=== PATIENT | female | born 2000 | race Two or more races ===

== ENCOUNTER 2024-08-28 11:49 | Emergency (ER) | payer MEDICAID, SELFPAY ==
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
[2024-08-28 12:35] VITALS: BMI 25.6
[2024-08-28 13:04] LABS: Basophils # (Auto) 0.1 Thou/mm3 (0.0-0.2); Basophils % (Auto) 0 % (0-2.5); Eosinophils # (Auto) 0.1 Thou/mm3 (0.0-0.5); Eosinophils % (Auto) 0 % (0-10); Hematocrit 35.7 % (36.0-46.0); Immature Granulocytes % (Auto) 0 % (0-0); Immature Granulocytes Auto 0.05 Thou/mm3 (0.00-0.00); Lymphocytes # (Auto) 1.2 Thou/mm3 (1.0-4.8); Lymphocytes % (Auto) 11 % (10-50); Mean Corpuscular HGB Conc 30.8 g/dl (31.0-37.0); Mean Corpuscular Hemoglobin 22.9 pg (25.0-35.0); Mean Corpuscular Volume 74 fL (80-100); Monocytes # (Auto) 0.8 Thou/mm3 (0.0-0.8); Monocytes % (Auto) 7 % (0-12); Neutrophils # (Auto) 9.3 Thou/mm3 (1.8-7.7); Neutrophils % (Auto) 81 % (37-80); Nucleated Red Blood Cell % 0 /100 WBC (0); Platelet Count 293 Thou/mm3 (140-440); RDW Standard Deviation 49.1 fL (36.4-46.3); White Blood Count 11.5 Thou/mm3 (3.6-11.0)
[2024-08-28 13:21] LABS: Acetaminophen < 2.0 mcg/mL (10.0-20.0); Alcohol, Blood Medical < 3.0 mg/dL (0-10.0); Anion Gap 14 (7-16); BUN/Creatinine Ratio 8 Ratio (12-20); Blood Urea Nitrogen 6 mg/dL (9-23); Calcium 9.8 mg/dL (8.3-10.6); Carbon Dioxide 21.4 mMol/L (20.0-31.0); Chloride 103 mMol/L (98-107); Creatinine (Component) 0.8 mg/dL (0.6-1.3); Estimated Creatinine Clearance 95.8 mL/min (>60); Glucose 91 mg/dL (74-106); Osmolality,Calculated 273 (275-295); Potassium 3.5 mMol/L (3.4-5.1); Salicylate < 3.0 mg/dL; Sodium 138 mMol/L (136-145); eGFR > 60 See Note
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
[2024-08-28 16:26] VITALS: BP 107/79; PULSE 87; RESP 16; TEMP 37.7; O2SAT 95
--- NOTE | 2024-08-28 16:41 | PC.CC ---
Patient was accepted to [facility] by Dr. Stahl into [address]. Keisha provided accepting information. Patient was made aware that she will be going to [facility] and was receptive to information. ASW provided update d/c plan to [facility] to Dr. Salcedo, dye beck reel operator Lanise, HERRERA Rodriguez, and BEVERLEY Pedroza. ETA p/u 1999.
[2024-08-28 18:22] VITALS: BP 115/76; PULSE 79; RESP 16; TEMP 36.7; O2SAT 99
[2024-08-28 19:48] VITALS: BP 122/83; PULSE 85; RESP 17; TEMP 37.1; O2SAT 99
== END 2024-08-28 20:01 ==
PROVIDERS: Nurse Practitioner Family; Emergency Provider Emergency Medicine
DX: F20.9 Schizophrenia, unspecified (principal)
CPT/HCPCS: 36415; 80048; 80307; 80320; 80329; 81001; 81025; 85025; 90839; 96127; 99285; G0480